=== PATIENT | female | born 1995 | race African-American/Black ===

== ENCOUNTER 2019-06-03 13:53 | Day surgery (SDC) | payer OTHER ==
[~2019-06-03 13:53] MED LIST: LIDOCAINE 1% 50 ML MDV ONE; SILVER NITRATE APPLICATOR TOP ONE
[2019-06-03] MEDS ORDERED: LACTATED RINGERS 1,000 ML IV ONE (14:18)
--- NOTE | 2019-06-03 14:26 | ANESTHESIA ---
Pre-Anesthesia VS, & Labs - Diagnosis lost IUD string - Procedure removal of IUD Vital Signs: Temp Pulse Resp BP Pulse Ox 36.6 C 82 16 120/72 98 06/03/19 14:05 06/03/19 14:05 06/03/19 14:05 06/03/19 14:05 06/03/19 14:05 Height 5 ft 7.72 in Weight (kg) 80.6 kg - NPO >8 hours - Is Patient ?: No Home Medications and Allergies Home Medications: Ambulatory Orders Norethindrone AC-Eth Estradiol [Loestrin 21 1.5-30 Tablet] 1 each PO 05/26/19 Norethindrone AC-Eth Estradiol [Loestrin 21 1.5-30 Tablet] 1 each PO 05/26/19 Allergies/Adverse Reactions: Allergies Allergy/AdvReac Type Severity Reaction Status Date / Time No Known Drug Allergies Allergy Verified 05/26/19 08:59 Anes History & Medical History - Anesthetic History Anesthesia Complications: reports: No previous complications - Medical History Cardiovascular: reports: None Pulmonary: reports: None Gastrointestinal: reports: None Urinary: reports: None Musculoskeletal: reports: None Endocrine/Autoimmune: reports: None Skin: reports: None Exam General: Alert Dental: WNL Mouth Opening: Greater than 4 Fingerbreadths Mallampati classification: II Thyromental Distance: greater than 6 cm Respiratory: Lungs clear Cardiovascular: Regular rate, Normal S1, Normal S2 Mental/Cognitive Status: Alert/Oriented X3 Plan Anesthesia Type: General, MAC, Total IV Consent for Procedure(s) Verified and Reviewed: Yes Code Status: Attempt Resuscitation ASA classification: 1-Healthy patient Is this case an emergency?: No
[2019-06-03] MEDS ORDERED: fentaNYL 100 MCG/2 ML VIAL IVP ONE (14:44)
[2019-06-03] MEDS ORDERED: LIDOCAINE-MPF 2% 5 ML VIAL IM ONE (14:44)
[2019-06-03] MEDS ORDERED: MIDAZOLAM 2 MG/2 ML VIAL IVP ONE (14:44)
--- NOTE | 2019-06-03 15:00 | OPERATIVE REPORT ---
Operative Report - General Procedure Date: 06/03/19 Planned Procedure: Removal of IUD with lost string Pre-Op Diagnosis: IUD with lost string Procedure Performed: Same as above Post Op Diagnosis: Same as above - Procedure Note Primary Surgeon: Bruce Anesthesia Provider: Minerva Anesthesia Technique: MAC Estimated Blood Loss (mL): 0 Indications: Desire for removal of IUD. Unable to remove IUD in the office. Findings: String not visible. Complications: None - Other Other Information/Narrative: The patient was brought to the operating room and placed supine on the operating table. She was given intravenous sedation and prepped and draped in the usual sterile fashion. A timeout was performed. A speculum was placed in her vagina and an alligator forcep was used to remove the IUD without difficulty. She was then awakened and taken to the recovery room in stable condition.
[2019-06-03 15:54] VITALS: BP 122/75
== END 2019-06-03 13:54 | disposition home or self-care (01) ==
LOC: SDS 13:53
PROVIDERS: ATTEND Obstetrics & Gynecology
PROC: 0UPD7HZ Removal of Contraceptive Device from Uterus and Cervix, Via Natural or Artificial Opening (ICD-10-PCS; principal; 2019-06-03 15:00)
DX: T83.32XA Displacement of intrauterine contraceptive device, initial encounter (principal); Y84.8 Other medical procedures as the cause of abnormal reaction of the patient, or of later complication, without mention of misadventure at the time of the procedure; N94.10 Unspecified dyspareunia; N92.1 Excessive and frequent menstruation with irregular cycle; Z79.3 Long term (current) use of hormonal contraceptives
CPT/HCPCS: 81025